=== PATIENT | female | born 1995 | race Asian ===

== ENCOUNTER 2016-06-02 17:52 | Emergency (ER) | payer SELFPAY ==
[~2016-06-02] VITALS: Ht 172.7 cm; Wt 57.5 kg
[2016-06-02 17:58] VITALS: Ht 172.7 cm; Wt 57.5 kg
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
[2016-06-02 18:48] LABS: BASO % 0.3 %; BASO ABS # 0.02 K/uL (0-0.2); COMPLETE YES; EOS % 0.2 %; HEMATOCRIT 39.4 % (37-47); IG% 0.3 %; LYMPH % 12.6 %; LYMPH ABS # 0.74 K/uL (1.2-3.4); MEAN CELL VOLUME 88.9 fL (80-100); MEAN CORPUSCULAR HEMOGLOBIN 30.9 pg (25-34); MEAN CORPUSCULAR HGB CONC 34.8 g/dl (32-36); MEAN PLATELET VOLUME 9.4 fL (7.4-10.4); MONO % 2.6 %; PLATELET COUNT 304 K/uL (130-400); RED BLOOD COUNT 4.43 M/uL (4.2-5.4); WHITE BLOOD COUNT 5.88 K/uL (4.8-10.8)
[2016-06-02 19:06] LABS: BUN/CREATININE RATIO 10.5 (10-20); CREATININE 0.8 mg/dl (0.60-1.20); POTASSIUM 4.1 mmol/L (3.5-5.1)
[2016-06-02 19:09] LABS: ACETAMINOPHEN < 2 ug/ml (10-30)
[2016-06-02 19:17] LABS: ALB/GLOB RATIO 1.2 (0.9-2); THYROID STIMULATING HORMONE 2.4 uIu/ml (0.300-4.500)
[2016-06-02 20:12] LABS: BENZODIAZEPINE, URINE NEG (NEG); COCAINE,URINE NEG (NEG); PHENCYCLIDINE, URINE NEG (NEG)
[2016-06-02 22:47] VITALS: BP 118/81; PULSE 102; O2SAT 96
== END 2016-06-02 22:48 | disposition home or self-care (01) ==
LOC: C.EDB 17:53 → C.EDA 22:48
DX: F10.129 Alcohol abuse with intoxication, unspecified (principal); Y90.6 Blood alcohol level of 120-199 mg/100 ml; S50.812A Abrasion of left forearm, initial encounter; X78.9XXA Intentional self-harm by unspecified sharp object, initial encounter; Z87.891 Personal history of nicotine dependence